=== PATIENT | female | born 1990 | race American Indian/Alaskan Native ===

== ENCOUNTER 2021-02-14 16:27 | Emergency (ER) | payer MEDICAID | END 2021-02-14 17:25 | disposition left against medical advice (07) | LOC: ED 16:27 ==

== ENCOUNTER 2021-08-17 04:05 | Emergency (ER) | payer MEDICAID ==
[2021-08-17] MEDS ORDERED: PHENYTOIN 100 MG CAPSULE.ER PO ONE (07:04)
--- NOTE | 2021-08-17 07:32 | XRay Report ---
RIGHT SHOULDER 3 VIEWS INDICATION: fall. Fall after seizure. Fell on right shoulder. Injury. COMPARISON: None. IMPRESSION: No acute osseous or soft tissue abnormality. No significant DJD. Signer Name: Vargas Thakur Jr, MD Signed: 08/17/2021 7:27 AM Workstation Name: [id number]
--- NOTE | 2021-08-17 07:54 | Emergency Department Report ---
ED General Adult HPI - General Chief complaint: Extremity Injury, Upper Stated complaint: RIGHT SHOULDER PAIN Time Seen by Provider: 08/17/21 06:52 Source: EMS Mode of arrival: Stretcher Limitations: No Limitations - History of Present Illness Initial comments: Patient presented with right shoulder pain. She actually does not recall how she injured her right shoulder. Patient states that she woke up and was having pain in the right shoulder. She believes that she fell. The pain is a constant and aching pain. Is worse with any kind of movement or palpation. The pain does not radiate or migrate. She has no other joint pain. Patient does report she has a history of seizures as described to her. She has never been treated for seizure disorder. There is no family history of seizure disorder. Patient states that she is talked to multiple family members that have told her throughout the years she has episodes where she starts to shake an d become unresponsive. These episodes last for minutes. She is then very somnolent and confused. Patient states that she may have had a seizure. That is what friends and family told her happened. - Related Data Previous Rx's Medication Instructions Recorded Last Taken Type Ibuprofen [Motrin] 600 mg PO Q8H PRN #20 tablet 08/17/21 Unknown Rx Phenytoin [Dilantin] 100 mg PO Q8HR #90 capsule 08/17/21 Unknown Rx Allergies Allergy/AdvReac Type Severity Reaction Status Date / Time No Known Allergies Allergy Verified 08/17/21 04:28 ED Review of Systems ROS: Stated complaint: RIGHT SHOULDER PAIN Other details as noted in HPI Comment: All other systems reviewed and negative Constitutional: denies: fever Eyes: denies: vision change ENT: denies: epistaxis Respiratory: denies: cough Cardiovascular: denies: chest pain Endocrine: denies: unexplained weight loss Gastrointestinal: denies: hematemesis Genitourinary: denies: hematuria Musculoskeletal: as per HPI Skin: denies: rash Neurological: denies: headache Hematological/Lymphatic: denies: easy bruising ED Past Medical Hx - Past Medical History Hx Seizures: Yes (Undiagnosed and untreated) - Family History Family history: no significant - Social History Smoking Status: Current Every Day Smoker (We discussed tobacco cessation x3 minutes) Substance Use Type: Alcohol, Marijuana - Medications Home Medications: Home Medications Medication Instructions Recorded Confirmed Last Taken Type Ibuprofen [Motrin] 600 mg PO Q8H PRN #20 tablet 08/17/21 Unknown Rx Phenytoin [Dilantin] 100 mg PO Q8HR #90 capsule 08/17/21 Unknown Rx ED Physical Exam - General Limitations: No Limitations, Other (Pulse ox noted and normal) General appearance: alert, in no apparent distress - Head Head exam: Present: atraumatic, normocephalic - Eye Eye exam: Present: normal appearance, EOMI - ENT ENT exam: Present: normal orophraynx, normal external ear exam - Neck Neck exam: Present: normal inspection. Absent: meningismus - Respiratory Respiratory exam: Present: normal lung sounds bilaterally. Absent: respiratory distress - Cardiovascular Cardiovascular Exam: Present: regular rate, normal rhythm - GI/Abdominal GI/Abdominal exam: Present: soft. Absent: tenderness - Extremities Exam Extremities exam: Present: normal capillary refill, other (Diffuse tenderness involving the right shoulder. There is no point tenderness. There is no step- off or deformity. There is no clavicular involvement. Patient has limited range of motion due to pain). Absent: calf tenderness - Back Exam Back exam: Absent: CVA tenderness (R), CVA tenderness (L) - Neurological Exam Neurological exam: Present: alert, oriented X3, CN II-XII intact, normal gait, reflexes normal, other (There is no dysdiadochokinesia or pronator drift). Absent: motor sensory deficit - Psychiatric Psychiatric exam: Present: normal affect, normal mood - Skin Skin exam: Present: warm, dry ED Course Vital Signs 08/17/21 04:28 Temperature 98.4 F Pulse Rate 97 H Respiratory 18 Rate Blood Pressure 127/65 [Left] O2 Sat by Pulse 97 Oximetry - Reevaluation(s) Reevaluation #1: 08/17/21 08:06 Radiographs have been noted. At this time, patient is neurologically normal. It sounds as though she has had seizure disorder for years that has never been treated. She can be referred to neurology for outpatient follow-up. We will start her empirically on Dilantin based on her presentation. She does have evidence of shoulder contusion. There is no evidence of fracture or dislocation based on x-rays. She was treated symptomatically and referred for follow-up. ED Medical Decision Making - Radiology Data Radiology results: report reviewed - Medical Decision Making Patient presents with right shoulder pain after what sounds like a seizure. It seems as though the patient has had seizures that have been untreated and undiagnosed. She is neurologically normal. I do not believe CT or MRI are indicated at this time given the fact that the patient has had seizure for years with no neurologic deficit. It is unlikely that the patient has a seizures related to hyponatremia or hypoglycemia given the fact that these episodes have stopped and never required medical evaluation. She will be started on antiepileptics and referred. Critical Care Time: No Critical care attestation.: If time is entered above; I have spent that time in minutes in the direct care of this critically ill patient, excluding procedure time. ED Disposition Clinical Impression: Seizure Contusion of right shoulder Qualifiers: Encounter type: initial encounter Qualified Code(s): S40.011A - Contusion of ri ght shoulder, initial encounter Disposition: HOME / SELF CARE / HOMELESS Is pt being admited?: No Condition: Stable Instructions: Contusion, [id number], Seizure, Adult, [id number] Additional Instructions: Drink plenty water. Apply ice to the shoulder. Return for problems. Follow-up with a regular doctor and specialist as discussed and referred. Do not drive, operate heavy equipment, operate power tools, or swim alone until you have followed up and been cleared by your regular doctor or neurologist for your seizures. Prescriptions: Phenytoin [Dilantin] 100 mg PO Q8HR #90 capsule Ibuprofen [Motrin] 600 mg PO Q8H PRN #20 tablet PRN Reason: Pain Referrals: PRIMARY MD FRANK [Primary Care Provider] - 3-5 Days DAVIDA ECHOLS MD [Staff Physician] - 3-5 Days ALEX LANDRY MD [Staff Physician] - 3-5 Days
[2021-08-17 08:30] VITALS: BP 119/76
== END 2021-08-17 08:31 | disposition home or self-care (01) ==
LOC: ED 04:05
DX: G40.909 Epilepsy, unspecified, not intractable, without status epilepticus (principal); S40.011A Contusion of right shoulder, initial encounter; F17.200 Nicotine dependence, unspecified, uncomplicated; F12.90 Cannabis use, unspecified, uncomplicated; F10.20 Alcohol dependence, uncomplicated; X58.XXXA Exposure to other specified factors, initial encounter; Y93.89 Activity, other specified; Y92.89 Other specified places as the place of occurrence of the external cause; Y99.8 Other external cause status
CPT/HCPCS: 99283